=== PATIENT | female | born 1995 | race Caucasian/White ===

== ENCOUNTER 2017-04-03 09:27 | Day surgery (SDC) | payer OTHER ==
[~2017-04-03] VITALS: Ht 167.6 cm; Wt 83.6 kg
[2017-04-03] VITALS (13 sets, daily range): BP systolic 102–128; BP diastolic 50–70; PULSE 73–114; RESP 14–24; Ht 167.6 cm; Wt 83.6 kg
[~2017-04-03 09:27] MED LIST: DIPHENHYDRAMINE 50 MG INJ IV PRN; FENTAnyl 50 MCG/ML VIAL IV PRN; HYDROmorphONE (0.2 MG/ML) 10ML SYG IV PRN; MEPERIDINE 25 MG INJ IV PRN; ONDANSETRON 4 MG INJ IV PRN; OXYCODONE/ACETAMINOPHEN (5/325) TAB PO PRN; PROCHLORPERAZINE 10 MG INJ IV PRN
[2017-04-03] MEDS ORDERED: CEFAZOLIN 2 GM/50 ML (PMX) 50 ML IVPB ONE (09:30)
[2017-04-03] MEDS ORDERED: SOD CHLORIDE 0.9% 1,000 ML IV ONE (09:30)
[2017-04-03] MEDS ORDERED: PROPOFOL 20 ML ONE (10:00)
[2017-04-03] MEDS ORDERED: LIDOCAINE 2% (SDV) 5 ML INJ ONE (10:00)
[2017-04-03] MEDS ORDERED: FENTAnyl 50 MCG/ML VIAL ONE ×2 (10:01→11:48)
[2017-04-03] MEDS ORDERED: MIDAZOLAM 1 MG/ML 2 ML INJ ONE (10:01)
[2017-04-03] MEDS ORDERED: CEFAZOLIN 1 GM INJ ONE (10:01)
[2017-04-03 10:53] LABS: ADD SCAN DIFF NO
[2017-04-03 11:00] LABS: ALBUMIN 4.8 g/dl (3.3-4.9); ALBUMIN/GLOBULIN RATIO 1.54; BILIRUBIN,INDIRECT 0.4 mg/dl (0-1.1); BILIRUBIN,TOTAL 0.4 mg/dl (0.2-1.3); TOTAL PROTEIN 7.9 g/dl (6.1-8.1)
[2017-04-03 11:01] LABS: CALCIUM 9.4 mg/dl (8.4-10.2); CREATININE 0.65 mg/dl (0.44-1.00); POTASSIUM 4.1 mmol/L (3.5-5.1)
[2017-04-03 11:07] LABS: BASOPHILS % 0.6 % (0.0-2.0); EOSINOPHILS # 0.1 10^3/ul (0.0-0.5); EOSINOPHILS % 0.9 % (0.0-7.0); HEMATOCRIT 42.3 % (37.0-47.0); HEMOGLOBIN 13.8 g/dl (12.0-16.0); LYMPHOCYTES # 2.1 10^3/ul (0.8-2.9); LYMPHOCYTES % 33.1 % (15.0-51.0); MEAN CORPUSCULAR HEMOGLOBIN 27.1 pg (29.0-33.0); MEAN CORPUSCULAR HGB CONC 32.6 g/dl (32.0-37.0); MEAN CORPUSCULAR VOLUME 83.1 fl (82.0-101.0); MEAN PLATELET VOLUME 10.7 fl (7.4-10.4); MONOCYTE # 0.4 10^3/ul (0.3-0.9); MONOCYTES % 6.4 % (0.0-11.0); NEUTROPHIL # 3.8 10^3/ul (1.6-7.5); NEUTROPHILS % 58.7 % (39.0-77.0); PLATELET COUNT 277 10^3/UL (140-415); RED BLOOD COUNT 5.09 10^6/ul (4.20-5.40); RED CELL DISTRIBUTION WIDTH 13.8 % (11.5-14.5); WHITE BLOOD COUNT 6.4 10^3/ul (4.8-10.8)
[2017-04-03] MEDS ORDERED: ONDANSETRON 4 MG INJ ONE (11:08)
[2017-04-03] MEDS ORDERED: METOCLOPRAMIDE 10 MG INJ ONE (11:08)
[2017-04-03] MEDS ORDERED: DEXAMETHASONE 4 MG/ML 1 ML INJ ONE (11:08)
[2017-04-03] MEDS ORDERED: BUPIVACAINE 0.25%/EPI (SDV) 30 ML INJ INJ ONE (11:17)
[2017-04-03] MEDS ORDERED: BUPIVACAINE 0.25%/EPI (SDV) 30 ML INJ ONE (11:17)
[2017-04-03] MEDS ORDERED: KETOROLAC 30 MG INJ ONE (11:19)
[2017-04-03 11:32] LABS: INR 1.01; PROTIME 13.3 Sec (12.2-14.2)
[2017-04-03] MEDS ORDERED: ONDANSETRON 4 MG INJ IV PRN (12:00)
[2017-04-03] MEDS ORDERED: KETOROLAC 30 MG INJ IV PRN (12:00)
[2017-04-03] MEDS ORDERED: morphine 2 MG INJ IV PRN (12:00)
[2017-04-03] MEDS ORDERED: HYDROCODONE/APAP (5/325) TAB PO PRN ×2 (12:00)
--- NOTE | 2017-04-03 12:00 | OPR ---
Date/Time of Note Date/Time of Note DATE: 04/03/17 TIME: 11:55 Operative Report Procedure Date: Apr 03, 2017 Preoperative Diagnosis Right breast mass Postoperative Diagnosis Right breast mass Operation Performed Excision of right breast mass Surgeon: NITIN ALICEA MD Anesthesia: general Anesthesiologist: BRENDA DICK MD Estimated Blood Loss: minimal Specimens Right breast mass Complications: None Pt Condition Post Procedure: stable Disposition: PACU Indications The patient is a 21-year-old female who presented to the office with a right breast mass. She has undergone a prior core biopsy which showed findings consistent with fibroadenoma. The mass has been growing and causing increasing pain and discomfort. She was therefore scheduled for elective excision for symptom relief and definitive pathological diagnosis. All risks and benefits of the procedure including, but not limited to: Wound infection, excessive bleeding, postoperative seroma/hematoma formation, mass recurrence, possibility for subsequent surgery, etc. were all explained to the patient in full detail. She fully understood and wished to proceed with the procedure. Informed consent was obtained. 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 Approximately 4 cm. Smaller 1 cm fibroadenoma just lateral to the larger one. Fibrocystic changes of breast Procedure Description Patient was brought to the operating room and placed supine on the operating table. Bilateral sequential compression devices were placed on both lower extremities. A dose of broad-spectrum perioperative intravenous antibiotics was given. A mass which was located at the 10:00 area of the right breast approximately 6 cm from the nipple was preoperatively marked and confirmed with the patient in the holding area. After the induction of smooth general anesthesia the patient's right breast and chest wall were prepped and draped in standard surgical fashion. After performance of the surgical timeout the skin over the area of the mass was anesthetized using 0.25% Marcaine with epinephrine. A curvilinear incision was made using a 15 blade scalpel over the area of the mass. Incision was taken down through the skin and subcutaneous tissues into the breast using the Bovie electrocautery. A well-circumscribed mass consistent with fibroadenoma was identified deep in the breast tissues posteriorly. It was dissected free of surrounding tissues and delivered into the wound with an Allis clamp. The mass was transected at its base using Bovie electrocautery. Marking sutures were used to khris the superior and lateral aspects. Mass measured approximately 4 cm in maximal dimension. It was passed off the field as specimen. A smaller mass consistent with fibroadenoma of approximately 1 cm was identified just lateral to the dominant mass. This was also dissected free and transected and passed off the field as specimen. Hemostasis was then inspected for and noted to be adequate. The wound cavity was then irrigated with sterile water and irrigant returned clear. The wound was then closed in layers using interrupted 3-0 Vicryl sutures for the deep layer and dermis. The skin was then reapproximated using a running 4-0 Monocryl suture in subcuticular fashion. For the local anesthesia was then applied around the skin of the incision site. Incision was cleaned and Dermabond was applied as well as a sports bra. Patient was then awoken from anesthesia and transferred to the recovery room in stable condition. All counts were correct at the end of the case 2. NITIN ALICEA MD Apr 03, 2017 12:00
[2017-04-03 13:06] LABS: PARTIAL THROMBOPLASTIN TIME 28.5 Sec (25.0-35.0)
[2017-04-03] MEDS ORDERED: IBUPROFEN 600 MG TAB PO PRN (18:00)
== END 2017-04-03 13:34 | disposition home or self-care (01) ==
LOC: SDS 09:27
PROVIDERS: ATTEND Surgery
DX: D24.1 Benign neoplasm of right breast (principal); E66.9 Obesity, unspecified; Z68.29 Body mass index [BMI] 29.0-29.9, adult
CPT/HCPCS: 19120; 80053; 84703; 85025; 85610; 85730; 88307; J0690; J1100; J1885; J2250; J2405; J2765; J3010; Z7512; Z7610